=== PATIENT | female | born 1970 | race Caucasian/White ===

== ENCOUNTER 2016-08-26 11:27 | Emergency (ER) | payer OTHER ==
[~2016-08-26 11:27] MED LIST: ADVA250A INH; AMOX875T2 PO; DILA2TAB2 PO
[2016-08-26 11:33] VITALS: BP 150/109; PULSE 106; RESP 18; TEMP 98.9; O2SAT 97
[2016-08-26 12:46] VITALS: BP 183/103; PULSE 93; RESP 20; O2SAT 97
--- NOTE | 2016-08-26 13:15 | PD ---
HPI Chief Complaint: Skin Problem Time Seen by Provider: 12:59 Travel History International Travel<30 days: No Contact w/Intl Traveler<30days: No Traveled to known affect area: No History of Present Illness HPI This 45-year-old female is complaining of a severely itchy rash. Says the rash going on for weeks. Says it started on her left leg. It initially was in a band and was quite painful. It became pustular. It has subsequently spread to all the other extremities. She has a history of a severe fracture of her left lower leg and has chronic pain. She is on no medications at present. Says the rash has been severely itchy. She does live with somebody and he has no symptoms. He also has children that have been asymptomatic. PFSH Past Medical History Asthma: Yes Blood Disorders: No Anxiety: Yes Cancer: No Cardiovascular Problems: No COPD: No Diabetes: No Diminished Hearing: No Endocrine: Yes Glaucoma: No Genitourinary: No Hepatitis: No Hiatal Hernia: No Hypertension: No Immune Disorder: No Musculoskeletal: No Neurologic: No Psychiatric: Yes Reproductive: No Respiratory: Yes (ASTHMA) Sleep Apnea: No Thyroid Disease: Yes (RESOLVED AFTER ) Influenza Vaccination: No ?: Not : 1 Para: 1 Past Surgical History Abdominal Surgery: No Cardiac Surgery: No Ear Surgery: No Endocrine Surgery: No Eye Surgery: No Genitourinary Surgery: No Gynecologic Surgery: Yes (C SECTION) Oral Surgery: No Pacemaker: No Thoracic Surgery: No Other Surgery: Yes Social History Alcohol Use: Yes (OCCAS.) Tobacco Use: No Substance Use: No Allergies-Medications (Allergen,Severity, Reaction): Coded Allergies: Betadine (Unverified Allergy, Severe, HIVES, 08/26/16) Contrast Media (Unverified Allergy, Severe, HIVES, 08/26/16) Iodine (Verified Allergy, Severe, EDEMA, 08/26/16) Reported Meds & Prescriptions Reported Meds & Active Scripts Active Permethrin Topical (Permethrin) 5% Cream 1 Applic TOPICAL ONCE Review of Systems General / Constitutional: Positive: Fever, No: Chills Eyes: No: Diploplia, Blurred Vision Cardiovascular: No: Chest Pain or Discomfort Respiratory: No: Cough Gastrointestinal: No: Nausea Genitourinary: No: Urgency Skin: Positive Rash, Positive Itching Endocrine: No: Cold Intolerance Hematologic/Lymphatic: No: Easy Bruising Physical Exam Narrative GENERAL: Well-developed female SKIN: Warm and dry. There are fairly diffuse erythematous rash with papular lesions. It has extensive excoriations HEAD: Atraumatic. Normocephalic. EYES: Pupils equal and round. No scleral icterus. No injection or drainage. ENT: No nasal bleeding or discharge. Mucous membranes pink and moist. NECK: Trachea midline. No JVD. CARDIOVASCULAR: Regular rate and rhythm. No murmur appreciated. RESPIRATORY: No accessory muscle use. Clear to auscultation. Breath sounds equal bilaterally. GASTROINTESTINAL: Abdomen soft, non-tender, nondistended. Hepatic and splenic margins not palpable. MUSCULOSKELETAL: No obvious deformities. No clubbing. No cyanosis. No edema. NEUROLOGICAL: Awake and alert. No obvious cranial nerve deficits. Motor grossly within normal limits. Normal speech. PSYCHIATRIC: Appropriate mood and affect; insight and judgment normal. Data Data Last Documented VS Vital Signs Date Time Temp Pulse Resp B/P Pulse Ox O2 Delivery O2 Flow Rate FiO2 08/26/16 12:46 93 20 183/103 97 Room Air 08/26/16 11:33 98.9 Orders Complete Blood Count With Diff (08/26/16 13:09) Comprehensive Metabolic Panel (08/26/16 13:09) Labs Laboratory Tests Test 08/26/16 08/26/16 13:20 14:22 Sodium Level 143 MEQ/L Potassium Level 4.3 MEQ/L Chloride Level 111 MEQ/L Carbon Dioxide Level 22.9 MEQ/L Anion Gap 9 MEQ/L Blood Urea Nitrogen 12 MG/DL Creatinine 0.73 MG/DL Estimat Glomerular Filtration 85 ML/MIN Rate Random Glucose 79 MG/DL Calcium Level 8.5 MG/DL Total Bilirubin 0.3 MG/DL Aspartate Amino Transf 30 U/L (AST/SGOT) Alanine Aminotransferase 43 U/L (ALT/SGPT) Alkaline Phosphatase 74 U/L Total Protein 7.6 GM/DL Albumin 3.8 GM/DL White Blood Count 15.0 TH/MM3 Red Blood Count 4.39 MIL/MM3 Hemoglobin 13.7 GM/DL Hematocrit 40.9 % Mean Corpuscular Volume 93.3 FL Mean Corpuscular Hemoglobin 31.2 PG Mean Corpuscular Hemoglobin 33.4 % Concent Red Cell Distribution Width 14.3 % Platelet Count 175 TH/MM3 Mean Platelet Volume 7.7 FL Neutrophils (%) (Auto) 63.3 % Lymphocytes (%) (Auto) 18.1 % Monocytes (%) (Auto) 2.4 % Eosinophils (%) (Auto) 15.4 % Basophils (%) (Auto) 0.8 % Neutrophils # (Auto) 9.5 TH/MM3 Lymphocytes # (Auto) 2.7 TH/MM3 Monocytes # (Auto) 0.4 TH/MM3 Eosinophils # (Auto) 2.3 TH/MM3 Basophils # (Auto) 0.1 TH/MM3 CBC Comment DIFF FINAL Differential Comment MDM Medical Decision Making Medical Screen Exam Complete: Yes Emergency Medical Condition: Yes Medical Record Reviewed: Yes Differential Diagnosis Differential includes allergic reaction, scabies Narrative Course Patient is concerned about the possibility of disseminated shingles. The rash does not have the appearance of shingles but she describes a progression was blistered and pustular. CBC shows a white count of 15,000 with prominent eosinophilia Diagnosis Primary Impression: Scabies Scripts Permethrin Topical 5% Cream1 Applic TOPICAL ONCE #1 TUBE Ref 0 Prov:Michael Valles MD 08/26/16 Disposition: 01 DISCHARGE HOME Condition: Stable Michael Valles MD Aug 26, 2016 13:15
[2016-08-26 13:36] LABS: CHLORIDE 111 MEQ/L (98-107); POTASSIUM 4.3 MEQ/L (3.5-5.1); SODIUM (NA) 143 MEQ/L (136-145)
[2016-08-26 13:40] LABS: ANION GAP 9 MEQ/L (5-15); BICARBONATE 22.9 MEQ/L (21.0-32.0); BLOOD UREA NITROGEN 12 MG/DL (7-18)
[2016-08-26 13:43] LABS: ALT (GPT) 43 U/L (10-53); AST (GOT) 30 U/L (15-37); GLOMERULAR FILTRATION RATE 85 ML/MIN (>89)
[2016-08-26 13:44] LABS: TOTAL BILIRUBIN ADULT 0.3 MG/DL (0.2-1.0)
[2016-08-26 13:46] LABS: ALKALINE PHOSPHATASE 74 U/L (45-117)
[2016-08-26] MEDS ORDERED: PERM5CRE TOPICAL (14:32)
[2016-08-26 14:35] LABS: AUTOMATED NEUTROPHIL # 9.5 TH/MM3 (1.8-7.7); BASOPHIL # 0.1 TH/MM3 (0-0.2); BASOPHIL % 0.8 % (0.0-2.0); EOSINOPHIL # 2.3 TH/MM3 (0-0.4); EOSINOPHIL % 15.4 % (0.0-4.0); HEMATOCRIT 40.9 % (35.0-46.0); LYMPH % 18.1 % (9.0-44.0); LYMPHOCYTE # 2.7 TH/MM3 (1.0-4.8); MEAN CELL VOLUME 93.3 FL (80.0-100.0); MEAN CORPUSCULAR HEMOGLOBIN 31.2 PG (27.0-34.0); MEAN CORPUSCULAR HGB CONC 33.4 % (32.0-36.0); MONO % 2.4 % (0.0-8.0); NEUT % 63.3 % (16.0-70.0); PLATELET COUNT 175 TH/MM3 (150-450); RED BLOOD COUNT 4.39 MIL/MM3 (4.00-5.30); RED CELL DISTRIBUTION WIDTH 14.3 % (11.6-17.2)
[2016-08-26 14:36] LABS: HEMO FLAGS DIFF FINAL
[2016-08-26] MEDS ORDERED: HYDR50TA94 PO (14:51)
[2016-08-26 14:52] VITALS: BP 147/84
== END 2016-08-26 15:03 | disposition home or self-care (01) ==
LOC: PHED 11:27
DX: B86 Scabies (principal)
CPT/HCPCS: 36600; 80053; 85025; 99283

== ENCOUNTER 2017-09-22 09:44 | Emergency (ER) | payer OTHER ==
[~2017-09-22] VITALS: Ht 167.6 cm; Wt 82.0 kg
[~2017-09-22 09:44] MED LIST changes: -ADVA250A INH; -AMOX875T2 PO; -DILA2TAB2 PO; +HYDR50TA94 PO; +PERM5CRE TOPICAL
[2017-09-22 09:46] VITALS: BP 175/117; PULSE 132; RESP 19; TEMP 98.7; O2SAT 100
[2017-09-22] MEDS ORDERED: ZOFR8TAB PO (10:11)
[2017-09-22] MEDS ORDERED: LIPI20TA PO (10:11)
[2017-09-22] MEDS ORDERED: DULO20 PO (10:11)
[2017-09-22] MEDS ORDERED: TIZA2CAP3 PO (10:11)
[2017-09-22] MEDS ORDERED: FURO1TAB60 PO (10:11)
[2017-09-22] MEDS ORDERED: ALPR.25 PO (10:11)
[2017-09-22] MEDS ORDERED: SODIUM CHLOR 0.9% 1000 ML INJ 1,000 ML IV SCH (10:33)
[2017-09-22] MEDS ORDERED: ONDANSETRON HCL 4 MG/2 ML VIAL IVP ONE (10:45)
[2017-09-22] MEDS ORDERED: SODIUM CHLORIDE 0.9% FLUSH 10 ML FLUSH IV FLUSH PRN (10:45)
[2017-09-22] MEDS ORDERED: MORPHINE SULFATE 4 MG/ML INJ IV PUSH ONE (10:45)
[2017-09-22] MEDS ORDERED: KETOROLAC TROMETHAMINE 30 MG/ML (IVP) VIAL IVP ONE (10:45)
--- NOTE | 2017-09-22 10:56 | PD ---
HPI . Abdominal pain and vomiting Chief Complaint: GI Complaint Time Seen by Provider: 10:33 Travel History International Travel<30 days: No Contact w/Intl Traveler<30days: No Traveled to known affect area: No History of Present Illness HPI This patient presents with the chief complaint of abdominal pain with vomiting. She states that she is currently being evaluated for this. She states that she has had a negative gallbladder ultrasound and a negative HIDA scan although the HIDA scan was incomplete as they were unable to medicate her to check her ejection fraction. Apparently there is a national shortage of the medication. Nonetheless, she comes in complaining with an 18 hour history of persistent vomiting. It is getting progressively worse. It is now associated with dizziness. She denies any associated fever. She states that Zofran has been tried for her symptoms without success. PFSH Past Medical History Asthma: Yes Blood Disorders: No Anxiety: Yes Cancer: No Cardiovascular Problems: No COPD: No Diabetes: No Diminished Hearing: No Endocrine: Yes Glaucoma: No Genitourinary: No Hepatitis: No Hiatal Hernia: No Hypertension: No Immune Disorder: No Musculoskeletal: No Neurologic: No Psychiatric: Yes Reproductive: No Respiratory: Yes (ASTHMA) Sleep Apnea: No Thyroid Disease: Yes (RESOLVED AFTER ) ?: Not : 1 Para: 1 Past Surgical History Abdominal Surgery: No Cardiac Surgery: No Ear Surgery: No Endocrine Surgery: No Eye Surgery: No Genitourinary Surgery: No Gynecologic Surgery: Yes (C SECTION) Oral Surgery: No Pacemaker: No Thoracic Surgery: No Other Surgery: Yes Social History Alcohol Use: Yes (OCCAS.) Tobacco Use: No Substance Use: No Allergies-Medications (Allergen,Severity, Reaction): Coded Allergies: diatrizoate meglumine (Unverified Allergy, Severe, HIVES, 09/22/17) gadobenic acid (Unverified Allergy, Severe, HIVES, 09/22/17) gadodiamide (Unverified Allergy, Severe, HIVES, 09/22/17) gadoteridol (Unverified Allergy, Severe, HIVES, 09/22/17) iodine (Unverified Allergy, Severe, EDEMA, 09/22/17) iodixanol (Unverified Allergy, Severe, HIVES, 09/22/17) iohexol (Unverified Allergy, Severe, HIVES, 09/22/17) potassium iodide (Unverified Allergy, Severe, EDEMA, 09/22/17) povidone-iodine (Unverified Allergy, Severe, EDEMA, 09/22/17) sodium iodide (Unverified Allergy, Severe, EDEMA, 09/22/17) sodium iodide (Unverified Allergy, Severe, EDEMA, 09/22/17) Reported Meds & Prescriptions Reported Meds & Active Scripts Active Reported Cymbalta DR (Duloxetine HCl) 20 Mg Capdr 20 Mg PO DAILY Tizanidine (Tizanidine HCl) 2 Mg Cap 4 Mg PO DAILY Lasix (Furosemide) 40 Mg Tab 40 Mg PO DAILY Xanax (Alprazolam) 0.25 Mg Tab 0.25 Mg PO HS PRN Zofran (Ondansetron HCl) 8 Mg Tab 8 Mg PO TID Lipitor (Atorvastatin Calcium) 20 Mg Tab 20 Mg PO HS Review of Systems Except as stated in HPI: all other systems reviewed are Neg General / Constitutional: No: Fever, Chills Gastrointestinal: Positive: Nausea, Vomiting, Diarrhea, Abdominal Pain Genitourinary: No: Urgency, Frequency, Dysuria Physical Exam Narrative GENERAL: Awake and alert. SKIN: warm/dry. Normal color and turgor. HEAD: Normocephalic. Atraumatic. EYES: Pupils equal and round. No scleral icterus. No injection or drainage. ENT: No nasal bleeding or discharge. Mucous membranes pink and moist. NECK: Trachea midline. Full range of motion without pain.. CARDIOVASCULAR: Regular rate and rhythm. RESPIRATORY: No accessory muscle use. Clear to auscultation. Breath sounds equal bilaterally. GASTROINTESTINAL: Abdomen soft. Upper abdominal tenderness without guarding or rebound. She is not point tender in the right upper quadrant. Bowel sounds present. Nondistended. MUSCULOSKELETAL: No obvious deformities. NEUROLOGICAL: Awake and alert. No obvious cranial nerve deficits. Motor grossly within normal limits. Normal speech. PSYCHIATRIC: Appropriate mood and affect; insight and judgment normal. Data Data Last Documented VS Vital Signs Date Time Temp Pulse Resp B/P (MAP) Pulse Ox O2 Delivery O2 Flow Rate FiO2 09/22/17 13:07 80 18 150/84 (106) 98 09/22/17 11:08 Room Air 09/22/17 09:46 98.7 Orders Orders Electrocardiogram (09/22/17 ) Complete Blood Count With Diff (09/22/17 10:33) Comprehensive Metabolic Panel (09/22/17 10:33) Lipase (09/22/17 10:33) Iv Access Insert/Monitor (09/22/17 10:33) Morphine Inj (Morphine Inj) (09/22/17 10:45) Ondansetron Inj (Zofran Inj) (09/22/17 10:45) Sodium Chlor 0.9% 1000 Ml Inj (Ns 1000 M (09/22/17 10:33) Sodium Chloride 0.9% Flush (Ns Flush) (09/22/17 10:45) Ketorolac Inj (Toradol Inj) (09/22/17 10:45) Diphenhydramine Inj (Benadryl Inj) (09/22/17 11:45) Labs Laboratory Tests Test 09/22/17 10:50 White Blood Count 10.1 TH/MM3 Red Blood Count 5.56 MIL/MM3 Hemoglobin 17.3 GM/DL Hematocrit 50.7 % Mean Corpuscular Volume 91.1 FL Mean Corpuscular Hemoglobin 31.1 PG Mean Corpuscular Hemoglobin Concent 34.2 % Red Cell Distribution Width 14.5 % Platelet Count 292 TH/MM3 Mean Platelet Volume 8.5 FL Neutrophils (%) (Auto) 57.8 % Lymphocytes (%) (Auto) 30.6 % Monocytes (%) (Auto) 10.1 % Eosinophils (%) (Auto) 0.7 % Basophils (%) (Auto) 0.8 % Neutrophils # (Auto) 5.9 TH/MM3 Lymphocytes # (Auto) 3.1 TH/MM3 Monocytes # (Auto) 1.0 TH/MM3 Eosinophils # (Auto) 0.1 TH/MM3 Basophils # (Auto) 0.1 TH/MM3 CBC Comment DIFF FINAL Differential Comment Blood Urea Nitrogen 12 MG/DL Creatinine 1.27 MG/DL Random Glucose 132 MG/DL Total Protein 9.3 GM/DL Albumin 4.7 GM/DL Calcium Level 10.1 MG/DL Alkaline Phosphatase 141 U/L Aspartate Amino Transf (AST/SGOT) 176 U/L Alanine Aminotransferase (ALT/SGPT) 266 U/L Total Bilirubin 1.7 MG/DL Sodium Level 139 MEQ/L Potassium Level 2.9 MEQ/L Chloride Level 100 MEQ/L Carbon Dioxide Level 27.2 MEQ/L Anion Gap 12 MEQ/L Estimat Glomerular Filtration Rate 45 ML/MIN Lipase 108 U/L [facility] Medical Decision Making Medical Screen Exam Complete: Yes Emergency Medical Condition: Yes Interpretation(s) EKG shows a sinus rhythm with a rate of 91. No ST segment elevation or depression. Differential Diagnosis Differential diagnosis includes but is not limited to viral gastritis, food poisoning, pancreatitis, pneumonia, hepatitis, acute coronary syndrome, Narrative Course Patient presents complaining with abdominal pain associated with nausea and vomiting. She also reports loose stools. She is currently being evaluated for these problems. I will treat her with IV fluids, IV morphine and IV Zofran. CBC & BMP Diagram 09/22/17 10:50 Total Protein 9.3 H, Albumin 4.7, Calcium Level 10.1, Alkaline Phosphatase 141 H , Aspartate Amino Transf (AST/SGOT) 176 H, Alanine Aminotransferase (ALT/SGPT) 266 H, Total Bilirubin 1.7 H Diagnosis Primary Impression: Vomiting Qualified Codes: R11.2 - Nausea with vomiting, unspecified Additional Impression: Hypokalemia Patient Instructions: Acute Nausea and Vomiting (DC), General Instructions, Hypokalemia (DC) Med/Other Pt SpecificInfo: Prescription(s) given Scripts Potassium Chloride ER (Potassium Chloride ER) 20 Meq Tab 20 MEQ PO BID for Electrolyte Replacement for 5 Days, #10 TAB 0 Refills Prov: Sarah Aguirre MD 09/22/17 Promethazine Supp (Phenergan Supp) 50 Mg Supp 50 MG RECTAL Q6H Y for NAUSEA OR VOMITING, #12 SUPP 0 Refills Prov: Sarah Aguirre MD 09/22/17 Disposition: 01 DISCHARGE HOME Condition: Stable Sarah Aguirre MD Sep 22, 2017 10:56
[2017-09-22 11:08] VITALS: BP 156/93; PULSE 84; RESP 21; O2SAT 98
[2017-09-22 11:43] LABS: AUTOMATED NEUTROPHIL # 5.9 TH/MM3 (1.8-7.7); BASOPHIL # 0.1 TH/MM3 (0-0.2); BASOPHIL % 0.8 % (0.0-2.0); EOSINOPHIL # 0.1 TH/MM3 (0-0.4); EOSINOPHIL % 0.7 % (0.0-4.0); HEMATOCRIT 50.7 % (35.0-46.0); HEMOGLOBIN 17.3 GM/DL (11.6-15.3); LYMPH % 30.6 % (9.0-44.0); LYMPHOCYTE # 3.1 TH/MM3 (1.0-4.8); MEAN CELL VOLUME 91.1 FL (80.0-100.0); MEAN CORPUSCULAR HEMOGLOBIN 31.1 PG (27.0-34.0); MEAN CORPUSCULAR HGB CONC 34.2 % (32.0-36.0); MEAN PLATELET VOLUME 8.5 FL (7.0-11.0); MONO % 10.1 % (0.0-8.0); NEUT % 57.8 % (16.0-70.0); PLATELET COUNT 292 TH/MM3 (150-450); RED BLOOD COUNT 5.56 MIL/MM3 (4.00-5.30); RED CELL DISTRIBUTION WIDTH 14.5 % (11.6-17.2); WHITE BLOOD COUNT 10.1 TH/MM3 (4.0-11.0)
[2017-09-22] MEDS ORDERED: diphenhydrAMINE HCL 50 MG/ML VIAL IV PUSH ONE (11:45)
[2017-09-22 12:11] LABS: ALBUMIN 4.7 GM/DL (3.4-5.0); ALKALINE PHOSPHATASE 141 U/L (45-117); ALT (GPT) 266 U/L (10-53); AST (GOT) 176 U/L (15-37); BICARBONATE 27.2 MEQ/L (21.0-32.0); BLOOD UREA NITROGEN 12 MG/DL (7-18); CALCIUM 10.1 MG/DL (8.5-10.1); CHLORIDE 100 MEQ/L (98-107); CREATININE 1.27 MG/DL (0.50-1.00); GLOMERULAR FILTRATION RATE 45 ML/MIN (>89); GLUCOSE,RANDOM 132 MG/DL (74-106); LIPASE 108 U/L (73-393); SODIUM (NA) 139 MEQ/L (136-145); TOTAL BILIRUBIN ADULT 1.7 MG/DL (0.2-1.0); TOTAL PROTEIN 9.3 GM/DL (6.4-8.2)
[2017-09-22 13:07] VITALS: BP 150/84; PULSE 80; RESP 18; O2SAT 98
[2017-09-22] MEDS ORDERED: PROM1SUP8 RECTAL (14:18)
[2017-09-22] MEDS ORDERED: POTA-163 PO (14:18)
--- NOTE | 2017-09-23 18:49 | EKG ---
Date Performed: 09/22/2017 Time Performed: 10:18:40 PTAGE: 46 years EKG: Sinus rhythm WITH SHORT [place] INTERVAL BORDERLINE ECG NO PREVIOUS TRACING DOCTOR: Talha Alberto Interpretating Date/Time 09/23/2017 18:48:06
== END 2017-09-22 14:58 | disposition home or self-care (01) ==
LOC: NEPE 09:44
DX: R11.2 Nausea with vomiting, unspecified (principal); E87.6 Hypokalemia
CPT/HCPCS: 80053; 83690; 85025; 93005; 96361; 96374; 96375; 99284; J1200; J1885; J2270; J2405; J7030